=== PATIENT | female | born 1995 | race Hispanic/Latino ===

== ENCOUNTER 2018-12-22 01:09 | Emergency (ER) | payer OTHER ==
--- NOTE | 2018-12-22 01:26 | EDPHYS ---
Physician Documentation [facility] Name: Jose G Davey Age: 23 yrs Sex: Female : 1995 Arrival Date: 12/22/2018 Time: 01:14 Bed 13 Private MD: ED Physician Jhonny Selby HPI: 12/22 01:33 This 23 yrs old Female presents to ER via Ambulatory with complaints of Hives. snw 01:33 Onset: The symptoms/episode began/occurred suddenly, 1 week(s) ago, and became snw persistent. Associated signs and symptoms: Pertinent positives: hives and itching since moving from [facility]. It is unknown whether or not the patient has had similar symptoms in the past. The patient has not recently seen a physician. no fever, no shortness of breath, no dysphagia/sore throat. + outdoor activities since moving. Historical: - Allergies: 01:30 No Known Drug Allergies; jb4 - Home Meds: 01:30 Benadryl Oral [Active]; jb4 - PMHx: 01:30 None; jb4 - PSHx: 01:30 None; jb4 - Immunization history:: Adult Immunizations up to date. - Social history:: Smoking status: Patient/guardian denies using tobacco, Patient uses alcohol, occasionally. - Ebola Screening: : No symptoms or risks identified at this time. ROS: 01:30 Constitutional: Negative for fever, chills, and weight loss, Eyes: Negative for injury, snw pain, redness, and discharge, ENT: Negative for injury, pain, and discharge, Neck: Negative for injury, pain, and swelling, Cardiovascular: Negative for chest pain, palpitations, and edema, Respiratory: Negative for shortness of breath, cough, wheezing, and pleuritic chest pain, Abdomen/GI: Negative for abdominal pain, nausea, vomiting, diarrhea, and constipation, Back: Negative for injury and pain, : Negative for injury, bleeding, discharge, and swelling, MS/Extremity: Negative for injury and deformity, Neuro: Negative for headache, weakness, numbness, tingling, and seizure, Psych: Negative for depression, anxiety, suicide ideation, homicidal ideation, and hallucinations. 01:30 Skin: Positive for rash, swelling. Exam: 01:26 Constitutional: This is a well developed, well nourished patient who is awake, alert, snw and in no acute distress. Head/Face: Normocephalic, atraumatic. Eyes: Pupils equal round and reactive to light, extra-ocular motions intact. Lids and lashes normal. Conjunctiva and sclera are non-icteric and not injected. Cornea within normal limits. Periorbital areas with no swelling, redness, or edema. ENT: Nares patent. No nasal discharge, no septal abnormalities noted. Tympanic membranes are normal and external auditory canals are clear. Oropharynx with no redness, swelling, or masses, exudates, or evidence of obstruction, uvula midline. Mucous membranes moist. Neck: Trachea midline, no thyromegaly or masses palpated, and no cervical lymphadenopathy. Supple, full range of motion without nuchal rigidity, or vertebral point tenderness. No Meningismus. Chest/axilla: Normal chest wall appearance and motion. Nontender with no deformity. No lesions are appreciated. Cardiovascular: Regular rate and rhythm with a normal S1 and S2. No gallops, murmurs, or rubs. Normal PMI, no JVD. No pulse deficits. Respiratory: Lungs have equal breath sounds bilaterally, clear to auscultation and percussion. No rales, rhonchi or wheezes noted. No increased work of breathing, no retractions or nasal flaring. Abdomen/GI: Soft, non-tender, with normal bowel sounds. No distension or tympany. No guarding or rebound. No evidence of tenderness throughout. Back: No spinal tenderness. No costovertebral tenderness. Full range of motion. MS/ Extremity: Pulses equal, no cyanosis. Neurovascular intact. Full, normal range of motion. Neuro: Awake and alert, GCS 15, oriented to person, place, time, and situation. Cranial nerves II-XII grossly intact. Motor strength 5/5 in all extremities. Sensory grossly intact. Cerebellar exam normal. Normal gait. Psych: Awake, alert, with orientation to person, place and time. Behavior, mood, and affect are within normal limits. 01:26 Skin: Appearance: normal except for affected area, rash can be described as papular, on the hands and feet with pruritis and intermittent erythema. Vital Signs: 01:30 BP 98 / 70; Pulse 74; Resp 16; Temp 98.5(O); Pulse Ox 100% on R/A; Weight 58.97 kg (R); jb4 Height 5 ft. 2 in. (157.48 cm) (R); Pain 0/10; 01:30 Body Mass Index 23.78 (58.97 kg, 157.48 cm) jb4 MDM: 01:24 Patient medically screened. snw 01:28 Data reviewed: vital signs, nurses notes. Data interpreted: Pulse oximetry: on room air snw is 99 %. Interpretation: normal. Counseling: I had a detailed discussion with the patient and/or guardian regarding: the historical points, exam findings, and any diagnostic results supporting the discharge/admit diagnosis, the need for outpatient follow up, for definitive care, to return to the emergency department if symptoms worsen or persist or if there are any questions or concerns that arise at home. Special discussion: Based on the history and exam findings, there is no indication for further emergent testing or inpatient evaluation. I discussed with the patient/guardian the need to see the primary care provider for further evaluation of the symptoms. Administered Medications: 01:44 Drug: Atarax 25 mg Route: PO; jb4 01:45 Follow up: Response: Medication administered at discharge. jb4 01:44 Drug: Pepcid 20 mg Route: PO; jb4 01:46 Follow up: Response: Medication administered at discharge. 4 Disposition: 02:06 Co-signature as Attending Physician, Jhonny Selby MD. rn Disposition: 12/22/18 01:24 Discharged to Home. Impression: Allergy, unspecified. - Condition is Stable. - Discharge Instructions: Allergies, Adult, Hives. - Prescriptions for Hydroxyzine HCl 25 mg Oral Tablet - take 1 tablet by ORAL route every 6 hours As needed; 30 tablet. Pepcid 20 mg Oral Tablet - take 1 tablet by ORAL route once daily; 20 tablet. - Medication Reconciliation Form, Thank You Letter, Antibiotic Education, Prescription Opioid Use form. - Follow up: Private Physician; When: 2 - 3 days; Reason: Recheck today's complaints, Continuance of care, Re-evaluation by your physician. Follow up: Emergency Department; When: As needed; Reason: Worsening of condition. Signatures: Tiffany Hall, SANITATION TRUCK CLEANER-C SANITATION TRUCK CLEANER-Csnw Jhonny Selby MD MD rn Bryson, James, RN RN [facility] Corrections: (The following items were deleted from the chart) 01:49 01:24 12/22/2018 01:24 Discharged to Home. Impression: Allergy, unspecified. Condition jb4 is Stable. Forms are Medication Reconciliation Form, Thank You Letter, Antibiotic Education, Prescription Opioid Use. Follow up: Private Physician; When: 2 - 3 days; Reason: Recheck today's complaints, Continuance of care, Re-evaluation by your physician. Follow up: Emergency Department; When: As needed; Reason: Worsening of condition. snw
--- NOTE | 2018-12-22 01:50 | ER ---
Nurse's Notes [facility] Name: Jose G Davey Age: 23 yrs Sex: Female : 1995 Arrival Date: 12/22/2018 Time: 01:14 Bed 13 Private MD: Diagnosis: Allergy, unspecified Presentation: 12/22 01:28 Presenting complaint: Patient states: I have hives on both of my feet. Transition of jb4 care: patient was not received from another setting of care. Onset: The symptoms/episode began/occurred today. Anaphylaxis evaluation, no signs or symptoms of anaphylaxis were noted. Onset of symptoms was December 22, 2018. Risk Assessment: Do you want to hurt yourself or someone else? Patient reports no desire to harm self or others. Initial Sepsis Screen: Does the patient meet any 2 criteria? No. Patient's initial sepsis screen is negative. Does the patient have a suspected source of infection? No. Patient's initial sepsis screen is negative. Care prior to arrival: None. 01:28 Method Of Arrival: Ambulatory jb4 01:28 Acuity: JOE 4 jb4 Historical: - Allergies: 01:30 No Known Drug Allergies; jb4 - Home Meds: 01:30 Benadryl Oral [Active]; jb4 - PMHx: 01:30 None; jb4 - PSHx: 01:30 None; jb4 - Immunization history:: Adult Immunizations up to date. - Social history:: Smoking status: Patient/guardian denies using tobacco, Patient uses alcohol, occasionally. - Ebola Screening: : No symptoms or risks identified at this time. Screenin:40 Abuse screen: Denies threats or abuse. Nutritional screening: No deficits noted. jb4 Tuberculosis screening: No symptoms or risk factors identified. Fall Risk None identified. Assessment: 01:40 General: Appears in no apparent distress. comfortable, Behavior is calm, cooperative, jb4 appropriate for age. Pain: Denies pain. Neuro: Level of Consciousness is awake, alert, obeys commands, Oriented to person, place, time, situation. Cardiovascular: Patient's skin is warm and dry. Respiratory: Airway is patent Respiratory effort is even, unlabored, Respiratory pattern is regular, symmetrical. GI: No signs and/or symptoms were reported involving the gastrointestinal system. : No signs and/or symptoms were reported regarding the genitourinary system. EENT: No signs and/or symptoms were reported regarding the EENT system. Derm: Skin is intact, Skin is pink, warm \T\ dry. Musculoskeletal: Circulation, motion, and sensation intact. Range of motion: intact in all extremities. Vital Signs: 01:30 BP 98 / 70; Pulse 74; Resp 16; Temp 98.5(O); Pulse Ox 100% on R/A; Weight 58.97 kg (R); jb4 Height 5 ft. 2 in. (157.48 cm) (R); Pain 0/10; 01:30 Body Mass Index 23.78 (58.97 kg, 157.48 cm) jb4 ED Course: 01:14 Patient arrived in ED. ds1 01:17 [facility]iffany Hall [facility]C [facility] snw 01:17 Jhonny Selby MD is Attending Physician. snw 01:28 Shyam Metzger, OXANA is Primary Nurse. jb4 01:29 Triage completed. jb4 01:30 Arm band placed on left wrist. jb4 01:40 Patient has correct armband on for positive identification. Bed in low position. Call jb4 light in reach. Side rails up X 1. 01:40 No provider procedures requiring assistance completed. Patient did not have IV access jb4 during this emergency room visit. Administered Medications: 01:44 Drug: Atarax 25 mg Route: PO; jb4 01:45 Follow up: Response: Medication administered at discharge. jb4 01:44 Drug: Pepcid 20 mg Route: PO; jb4 01:46 Follow up: Response: Medication administered at discharge. jb4 Outcome: 01:24 Discharge ordered by . snw 01:49 Discharged to home ambulatory, with family. jb4 01:49 Condition: stable 01:49 Discharge instructions given to patient, family, Instructed on discharge instructions, follow up and referral plans. medication usage, Demonstrated understanding of instructions, follow-up care, medications, Prescriptions given X 2. 01:49 Patient left the ED. jb4 Signatures: Tiffany Hall FNP-C PROCUREMENT CLERK-CsnShagufta Sosa ds1 Shyam Metzger, RN RN jb4
[2018-12-22] MEDS ORDERED: hydrOXYzine HCl 25 MG TAB ONE (01:54)
[2018-12-22] MEDS ORDERED: FAMOTIDINE 20 MG TAB ONE (01:54)
== END 2018-12-22 01:49 | disposition home or self-care (01) ==
LOC: ER 01:09
DX: R21 Rash and other nonspecific skin eruption (principal); Z91.09 Other allergy status, other than to drugs and biological substances
CPT/HCPCS: 99283